=== PATIENT | male | born 1980 | race Caucasian/White ===

== ENCOUNTER 2017-06-10 22:41 | Emergency (ER) | payer BC ==
--- NOTE | 2017-06-10 22:55 | EDPHY ---
H & P Stated Complaint: PANIC ATTACK X 2 HRS Time Seen by Provider: 06/10/17 22:55 HPI/ROS: HPI CHIEF COMPLAINT: Anxiety/panic attack HISTORY OF PRESENT ILLNESS: This patient is a 37-year-old male, he suffers from anxiety and panic attack. He takes mirtazapine, hydroxyzine, fluoxetine, at night before he goes to bed for anxiety and sleep. He became concerned about taking his medications tonight got anxious. He decided instead of taking his nightly medications to control his anxiety he would come to the emergency room. Upon arrival he does state he is anxious. He denies wanting to hurt himself or anybody else. Denies suicidal or homicidal ideation. Denies wanting to harm himself. He states that he simply anxious and was unsure if she take his medications receive a different medication here in emergency room. After lengthy discussion with the patient who decided that he would take his nighttime anxiety/sleep medications and will re-evaluate him shortly. If he feels better he can be discharged home. Past Medical History: Anxiety/panic attack Past Surgical History: No recent surgery Social History: Denies daily use of drugs alcohol tobacco. Family History: Noncontributory ROS REVIEW OF SYSTEMS: A comprehensive 10 point review of systems is otherwise negative aside from elements mentioned in the history of present illness. Exam Constitutional appears well nontoxic no acute distress, somewhat anxious, triage nursing summary reviewed, vital signs reviewed, awake/alert. Eyes normal conjunctivae and sclera, EOMI, PERRLA. HENT normal inspection, atraumatic, moist mucus membranes, no epistaxis, neck supple/ no meningismus, no raccoon eyes. Respiratory clear to auscultation bilaterally, normal breath sounds, no respiratory distress, no wheezing. Cardiovascular rate normal, regular rhythm, no murmur, no edema, distal pulses normal. Gastrointestinal soft, non-tender, no rebound, no guarding, normal bowel sounds, no distension, no pulsatile mass. Genitourinary no CVA tenderness. Musculoskeletal no midline vertebral tenderness, full range of motion, no calf swelling, no tenderness of extremities, no meningismus, good pulses, neurovascularly intact. Skin pink, warm, & dry, no rash, skin atraumatic. Neurologic awake, alert and oriented x 3, AAOx3, moves all 4 extremities equally, motor intact, sensory intact, CN II-XII intact, normal cerebellar, normal vision, normal speech. Psychiatric normal mood/affect. Heme/Lymph/Immune no lymphadenopathy. Differential Diagnosis: Includes but is not limited to in a particular order acute anxiety attack, panic attack, need for his nightly time medication. Medical Decision Making: Plan for this patient will allow the patient to take his nighttime anxiety/sleep medication and will re-evaluate him in approximately 45 min to an hour to see if he has improvement in his anxiety. Re-evaluation: Patient much improved after or home oral medications. Patient denies any further anxiety or panic. He was resting somewhat sleeping in the emergency room. Stable for discharge. Return precautions discussed with him. Source: Patient - Personal History Current Tetanus Diphtheria and Acellular Pertussis (TDAP): Yes - Medical/Surgical History Hx Asthma: No Hx Chronic Respiratory Disease: No Hx Diabetes: No Hx Cardiac Disease: No Hx Renal Disease: No Hx Cirrhosis: No Hx Alcoholism: No Hx HIV/AIDS: No Hx Splenectomy or Spleen Trauma: No Other PMH: HX: ORTHO KNEE SURGERY, L LUNG COLLAPSED. OCD, PANIC ATTACKS - Social History Smoking Status: Never smoked Constitutional: Initial Vital Signs Temperature (C) 37.0 C 06/10/17 22:48 Heart Rate 67 06/10/17 22:48 Respiratory Rate 16 06/10/17 22:48 Blood Pressure 121/69 H 06/10/17 22:48 O2 Sat (%) 97 06/10/17 22:48 O2 Delivery Mode Room Air Allergies/Adverse Reactions: No Known Allergies Allergy (Verified 06/10/17 22:46) Home Medications: Medication Instructions Recorded Hydroxyzine HCl 06/10/17 MIRTAZAPINE 06/10/17 PARoxetine CR 06/10/17 traZODone 06/10/17 Departure - Departure Disposition: Home, Routine, Self-Care Clinical Impression: Anxiety attack Condition: Good Instructions: Anxiety (ED) Additional Instructions: 1. Please follow up with her psychiatrist. 2. Return emergency room if he develops worsening symptoms includes thoughts of wanting to harm herself or anybody else. 3. Take your medications as prescribed. Referrals: Evelin Barksdale MD [Primary Care Provider] - As per Instructions
[2017-06-11 00:25] VITALS: BP 106/74
== END 2017-06-11 00:27 | disposition home or self-care (01) ==
DX: F41.9 Anxiety disorder, unspecified (principal)

== ENCOUNTER 2017-06-17 05:06 | Emergency (ER) | payer BC ==
--- NOTE | 2017-06-17 06:15 | EDPHY ---
H & P Stated Complaint: FEELING ANXIETY AND SI, Source: Patient Exam Limitations: No limitations - Personal History Current Tetanus/Diphtheria Vaccine: Yes Current Tetanus Diphtheria and Acellular Pertussis (TDAP): Yes - Medical/Surgical History Hx Asthma: No Hx Chronic Respiratory Disease: No Hx Diabetes: No Hx Cardiac Disease: No Hx Renal Disease: No Hx Cirrhosis: No Hx Alcoholism: No Hx HIV/AIDS: No Hx Splenectomy or Spleen Trauma: No Other PMH: HX: ORTHO KNEE SURGERY, L LUNG COLLAPSED. OCD, PANIC ATTACKS - Social History Smoking Status: Never smoked Time Seen by Provider: 06/17/17 05:17 HPI/ROS: HPI The patient presents with worsening anxiety now with suicidal thoughts. The patient has been suffering from anxiety for the last 1 week approximately. 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 As he says that his psychiatric medications have been making him lightheaded. He saw his primary psychiatrist about 1 week ago and his doses of mirtazapine and trazodone were decreased. He did not notice much difference in his lightheadedness after this. He did not take his medicines yesterday because of the lightheadedness. As he today had suicidal thoughts with plan to injure himself with a kitchen knife. He has no prior history of suicidality. He says he has decreased sleep, sleeping about 5 hr a night. He has not had an appetite over the last 24 hr. Is about 1 month ago he was admitted to [facility] any said this helped him significantly.. REVIEW OF SYSTEMS Constitutional: No fever, no chills. Eyes: No discharge. ENT: No sore throat. Cardiovascular: No chest pain, no palpitations. Respiratory: No cough, no shortness of breath. Gastrointestinal: No abdominal pain, no vomiting. Genitourinary: No hematuria. Musculoskeletal: No back pain. Skin: No rashes. Neurological: No headache. PMHx: Anxiety and OCD, Dr. Chaparro Barnett is his psychiatrist Soc Hx: Works as a physicist, nonsmoker PHYSICAL General Appearance: Alert, anxious Eyes: Pupils equal and round no pallor or injection ENT, Mouth: Mucous membranes moist Respiratory: There are no retractions, lungs are clear to auscultation Cardiovascular: Regular rate and rhythm Gastrointestinal: Abdomen is soft and non-tender, no masses, bowel sounds normal Neurological: A&O, moves all extremities Skin: Warm and dry, no rashes Musculoskeletal: Neck is supple non tender Extremities: symmetrical, full range of motion Psychiatric: Patient is oriented X 3, there is no agitation (Velvet Sanchez) Constitutional: Initial Vital Signs Temperature (C) 36.7 C 06/17/17 05:08 Heart Rate 76 06/17/17 05:08 Respiratory Rate 16 06/17/17 05:08 Blood Pressure 116/71 06/17/17 05:08 O2 Sat (%) 99 06/17/17 05:08 O2 Delivery Mode Room Air O2 (L/minute) 98 Allergies/Adverse Reactions: No Known Allergies Allergy (Verified 06/17/17 05:11) Home Medications: Medication Instructions Recorded Hydroxyzine HCl 06/10/17 MIRTAZAPINE 06/10/17 PARoxetine CR 06/10/17 traZODone 06/10/17 Medical Decision Making ED Course/Re-evaluation: I took over care of this patient at 7:00 a.m.. This patient is in the emergency department for anxiety and previous suicidal thoughts. He is not currently suicidal. He is not on an M1 hold. He is currently awaiting behavioral health evaluation. He would like to be transferred to [facility] for inpatient treatment. 3:00 p.m., the patient is to be transferred to a CSU. Destination pending at this time. Care turned over to Dr. Humera Gutierrez. (Tremaine Loredo) 3:00 p.m.-I assumed care of this patient at shift change. He presents with suicidal ideation and the plan is for disposition to a CSU. Accepted by Dr. Rowland to [facility]. EMTALA completed. (Humera Gutierrez) Differential Diagnosis: This is a 37-year-old man with history of anxiety who presents with worsening anxiety in association with fleeting suicidal thoughts. His psychiatric medications are inducing lightheadedness he believes so he has decreased his doses and did not take his medicine as yesterday. Differential diagnosis includes worsening anxiety, suicidal ideation due to underlying depression, stress response, substance abuse. Plan for basic laboratory testing. We will request a mental health evaluation. As the patient is not clearly suicidal currently, I will not place him on an M1 hold. He would like to go to [facility] as he has benefitted from being there previously. At 7:00 a.m., the case is signed out to Dr. Loredo pending urinalysis and subsequent psychiatric evaluation. (Velvet Sanchez) - Data Points Laboratory Results: Laboratory Results 06/17/17 05:31 18 05:31 18 18 06/17/17 07:15 05:31 05:31 WBC 8.15 10^3/uL 10^3/uL (3.80-9.50) RBC 4.78 10^6/uL 10^6/uL (4.40-6.38) Hgb 14.7 g/dL g/dL (13.7-17.5) Hct 41.7 % % (40.0-51.0) MCV 87.2 fL fL (81.5-99.8) MCH 30.8 pg pg (27.9-34.1) MCHC 35.3 g/dL g/dL (32.4-36.7) RDW 12.3 % % (11.5-15.2) Plt Count 273 10^3/uL 10^3/uL (150-400) Sodium 143 mEq/L mEq/L (135-145) Potassium 3.9 mEq/L mEq/L (3.5-5.2) Chloride 104 mEq/L mEq/L (97-110) Carbon Dioxide 21 mEq/l L mEq/l (22-31) Anion Gap 18 mEq/L H mEq/L (8-16) BUN 11 mg/dL mg/dL (7-23) Creatinine 0.8 mg/dL mg/dL (0.7-1.3) Estimated GFR > 60 Glucose 92 mg/dL mg/dL (70-100) Calcium 9.3 mg/dL mg/dL (8.5-10.4) Urine Opiates Screen NEGATIVE (NEGATIVE) Urine Barbiturates NEGATIVE (NEGATIVE) Ur Phencyclidine Scrn NEGATIVE (NEGATIVE) Ur Amphetamine Screen NEGATIVE (NEGATIVE) U Benzodiazepines Scrn NEGATIVE (NEGATIVE) Urine Cocaine Screen NEGATIVE (NEGATIVE) U Marijuana (THC) Screen NEGATIVE (NEGATIVE) Departure - Departure Disposition: Other Psych, Not [place] Clinical Impression: Anxiety Condition: Fair Instructions: Anxiety (ED), Anxiolysis in Adults (ED) Referrals: Evelin Barksdale MD [Primary Care Provider] - As per Instructions
[2017-06-17 16:52] VITALS: BP 134/86
== END 2017-06-17 17:01 ==
DX: F41.9 Anxiety disorder, unspecified (principal)
CPT/HCPCS: 80305